=== PATIENT | female | born 1995 | race Hispanic/Latino ===

== ENCOUNTER 2021-02-25 22:08 | Emergency (ER) | payer SELFPAY ==
[~2021-02-25] VITALS: Ht 167.6 cm; Wt 90.0 kg
[2021-02-25 22:48] LABS: HEMATOCRIT 37.7 % (37.0-47.0); IMMATURE GRANULOCYTES 0.4 % (0.0-5.0); MEAN CELL VOLUME 83.2 fL CALC (80.0-100.0); MEAN CORPUSCULAR HGB 26.5 pG CALC (26.0-32.0); MEAN CORPUSCULAR HGB CONC 31.8 g/dL CAL (32.0-36.0); NEUT# 4.55 thou/uL (2.00-7.15); RED BLOOD COUNT 4.53 mill/uL (4.20-5.60); RED CELL DISTRI WIDTH 14.6 % (11.5-15.5)
[2021-02-25 22:49] LABS: URINE BILIRUBIN - DIPSTICK NEGATIVE (NEGATIVE); URINE BLOOD DIPSTICK LARGE (NEGATIVE); URINE COLOR YELLOW; URINE GLUCOSE - DIPSTICK NEGATIVE (NEGATIVE); URINE KETONE NEGATIVE (NEGATIVE); URINE LEUK ESTERASE NEGATIVE (NEGATIVE); URINE PROTEIN - DIPSTICK NEGATIVE (NEG-TRACE); URINE SPECIFIC GRAVITY 1.015; URINE UROBILINOGEN - DIPSTICK 0.2 E.U./dL (0.2)
[2021-02-25 22:50] LABS: URINE NITRITE - DIPSTICK NEGATIVE (Negative)
[2021-02-25 22:59] LABS: URINE SQUAMOUS EPITHELIAL CELL FEW EPI/hpf (0-FEW); URINE WBC 0-2 WBC/hpf (0-5)
[2021-02-25 23:52] VITALS: BP 121/79
== END 2021-02-25 23:52 | disposition home or self-care (01) | DRG 761 ==
LOC: ED 22:08
DX: N92.6 Irregular menstruation, unspecified (principal)